=== PATIENT | male | born 1945 | race Caucasian/White ===

== ENCOUNTER → 2016-11-12 | Day surgery (SDC) | payer OTHER ==
[2016-11-12 08:14] LABS: ALBUMIN 4.6 g/dL (3.4-4.8); BILIRUBIN - TOTAL 1.4 mg/dL (0.1-1.0); CREATININE 0.9 mg/dL (0.7-1.2); GLOBULIN (CALCULATION) 2.5 g/dL (2.2-4.2); TOTAL PROTEIN 7.1 g/dL (6.4-8.3)
[2016-11-12 08:16] LABS: HCT 50.1 % (42.0-52.0); HGB 17.2 g/dl (13.2-18.0); MCH 34.5 pg (25.0-31.0); MCHC 34.3 g/dL (32.0-36.0); MCV 100.6 fL (78.0-100.0); MPV 10.1 fL (6.0-9.5); RBC 4.98 M/uL (4.70-6.00); RDW 12.2 % (11.5-14.0); WBC 7.8 K/uL (4.0-10.5)
== END | disposition home or self-care (01) ==
LOC: FAS 07:29
PROVIDERS: Surgery
DX: Z12.11 Encounter for screening for malignant neoplasm of colon (principal); Z86.010 Personal history of colon polyps; M19.90 Unspecified osteoarthritis, unspecified site; M06.9 Rheumatoid arthritis, unspecified; Z87.442 Personal history of urinary calculi; Z90.49 Acquired absence of other specified parts of digestive tract
CPT/HCPCS: 36415; 80053; 88305; J2704